=== PATIENT | female | born 1940 | race Caucasian/White ===

== ENCOUNTER 2023-06-14 01:57 | Emergency (ER) | payer MEDICARE, OTHER, SELFPAY ==
--- NOTE | 2023-06-13 02:04 | ECG_ITS ---
APPROVED REPORT Exam: Resting ECG HR:86 bpm ECG Measurements Heart Rate 86 AXES [place] 196 P 54 QRSd 157 QRS -15 QT 423 T 137 QTc 467 Conclusion SINUS RHYTHM LEFT BUNDLE BRANCH BLOCK [120+ ms QRS DURATION, 80+ ms Q/S IN V1/V2, 85+ ms R IN I/aVL/V5/V6] ABNORMAL ECG UNCONFIRMED REPORT Electronically signed by : James Carrizales MD 06/15/2023 17:40:15
[2023-06-14] VITALS (12 sets, daily range): BP systolic 102–151; BP diastolic 61–106; PULSE 73–90; RESP 18–20; TEMP 36.9–37; O2SAT 92–96; BMI 48.6
[2023-06-14 02:22] LABS: Basophils % 0.5 % (0.1-2.0); Eosinophils # 0.2 K/mm3 (0.0-0.4); Eosinophils % 3.9 % (0.1-12.0); Hematocrit 39.4 % (37.0-47.0); Hemoglobin 12.8 g/dL (12.2-16.2); Lymphocytes # 2.5 K/mm3 (0.7-4.5); Lymphocytes % 45.6 % (10-50); Mean Corpuscular HGB Conc 32.4 g/dL (31.8-35.4); Mean Corpuscular Hemoglobin 30.5 pg (27.0-31.2); Mean Corpuscular Volume 94.1 fl (81-99); Mean Platelet Volume 8.7 fl (7.4-10.4); Monocytes # 0.3 K/mm3 (0.1-1.0); Monocytes % 5.4 % (1.7-9.3); Neutrophils # 2.4 K/mm3 (1.8-7.8); Neutrophils % 44.5 % (37.0-80.0); Platelet Count 162 K/mm3 (142-424); Red Blood Count 4.19 M/mm3 (4.20-5.40); Red Cell Distribution Width 14.3 % (11.5-17.5); White Blood Count 5.4 K/mm3 (4.8-10.8)
[2023-06-14 02:26] LABS: Chloride 108 mmol/L (98-107); Sodium 141 mmol/L (136-145)
[2023-06-14 02:27] LABS: Potassium 3.8 mmoL/L (3.5-5.1)
[2023-06-14 02:29] LABS: Alanine Aminotransferase 16 U/L (12-78); Albumin Level 3.8 g/dl (3.5-5.0); Albumin/Globulin Ratio 1.4 (1.1-1.8); Alkaline Phosphatase 80 U/L (38-126); Anion Gap 10.8 mEq/L (5-15); Aspartate Amino Transferase 27 U/L (14-36); Bilirubin,Total 0.5 mg/dl (0.2-1.3); Blood Urea Nitrogen 20 mg/dl (7-17); Calcium 8.7 mg/dl (8.4-10.2); Carbon Dioxide 26 mmol/L (22.0-30.0); Creatinine Clearance Estimated 36 mL/min (50-200); Estimated Glomerular Filt Rate 53 ml/min (>60); GFR (African American) 64 ML/MIN (>60); Globulin 2.7 g/dL (1.3-3.2); Glucose 112 mg/dl (74-100); Lipase 145 U/L (23-300); Total Protein,Serum 6.5 g/dl (6.3-8.2)
[2023-06-14 02:43] LABS: Troponin I 0.01 ng/ml (0.00-0.034)
--- NOTE | 2023-06-14 03:09 | XR_ITS ---
PROCEDURE INFORMATION: Exam: XR Chest Exam date and time: 06/14/2023 3:16 AM Age: 82 years old Clinical indication: Pain; Chest pressure; Additional info: Chest pain, SOA TECHNIQUE: Imaging protocol: Radiologic exam of the chest. Views: 1 view. COMPARISON: No relevant prior studies available. FINDINGS: Lungs: Left basilar atelectasis versus early airspace disease. Pleural spaces: Unremarkable. No pleural effusion. No pneumothorax. Heart/Mediastinum: Cardiomegaly. Bones/joints: Unremarkable. IMPRESSION: Cardiomegaly. Left basilar atelectasis versus early airspace disease.
[2023-06-14 03:58] LABS: Adenovirus,PCR Not Detected (NotDetected); Coronavirus 229E Not Detected (NotDetected); Coronavirus NL63 Not Detected (NotDetected); Coronavirus OC43 Not Detected (NotDetected); Coronovirus HKU1,PCR Not Detected (NotDetected); Human Metapneumovirus Not Detected (NotDetected); Influenza A, PCR Not Detected (NotDetected); Influenza AH1, 2009 Not Detected (NotDetected); Influenza AH1, PCR Not Detected (NotDetected); Influenza AH3,PCR Not Detected (NotDetected); Influenza B, PCR Not Detected (NotDetected); Parainfluenza 1, PCR Not Detected (NotDetected); Rhinovirus/Enterovirus Not Detected (NotDetected)
[2023-06-14 03:59] LABS: Coronavirus 19, PCR Not Detected (NotDetected); Parainfluenza 2, PCR Not Detected (NotDetected); Parainfluenza 3, PCR Not Detected (NotDetected); Parainfluenza 4, PCR Not Detected (NotDetected); Respiratory Syncytial Virus Not Detected (NotDetected)
[2023-06-14 04:15] LABS: NT Pro Brain Natriuretic Pep. 852 pg/mL (0-450)
[2023-06-14 05:28] LABS: Troponin I 0.02 ng/ml (0.00-0.034)
--- NOTE | 2023-06-14 06:06 | [facility].EDGENADL ---
Discharge Plan Disposition Patient Disposition: Home, Self-Care Condition: Good Prescriptions Prescriptions: New amoxicillin-pot clavulanate [Augmentin XR] 1,000-62.5 mg tablet extended release 12 hr 2 tab PO DAILY 5 Days Qty: 10 0RF doxycycline hyclate 100 mg capsule 100 mg PO BID 5 Days Qty: 10 0RF No Action aspirin 81 mg tablet,delayed release (DR/EC) 81 mg PO DAILY atorvastatin 40 mg tablet 40 mg PO DAILY Caltrate 600 plus D 600 mg (1,500 mg)-800 unit tablet,chewable 1 tab PO BID ferrous sulfate [Feosol] 325 mg (65 mg iron) tablet 325 mg PO DAILY levothyroxine 137 mcg capsule 137 mcg PO DAILY meclizine 12.5 mg tablet 12.5 mg PO TID PRN methenamine hippurate 1 gram tablet 1 g PO BID metoprolol succinate 50 mg capsule,sprinkle,ER 24hr 50 mg PO DAILY montelukast 10 mg tablet 10 mg PO QPM pantoprazole 40 mg recon soln 40 mg IV DAILY prenat.vits,juliano,[id number] Tablet 1 tab PO DAILY prenat.vits,juliano,[id number]-[id number] Tablet 1 tab PO DAILY ropinirole 2 mg tablet 2 mg PO QHS sucralfate 1 gram tablet 1 g PO BID acetaminophen [Tylenol Extra Strength] 500 mg tablet 500 mg PO Q6H PRN diphenhydramine-acetaminophen [Tylenol PM Extra Strength] 25-500 mg tablet 1 tab PO QHS PRN warfarin 3 mg tablet 3 mg PO QMWF Referrals Follow up/Referrals: James Carrizales MD [Primary Care Provider] - See instructions Activity Restrictions/Add. Instructions Additional Instructions/Restrictions: Recheck with PCP within 2 days. Clinical Impressions Clinical Impression: Pneumonia involving left lung Instructions Patient Instructions: Pneumonia-Adult Discharge ED Provider: Frida Nicole General Adult HPI General Chief complaint: Chest Pain Stated complaint: respiratory symptoms Time Seen by Provider: 06/14/23 03:31 Mode of Arrival: EMS Source of Information: EMS and Medical Record Limitations: No Limitations Description of Symptoms (Recalled from ER Triage Doc. by RN): pt came from [facility] complaing of chest pain and soa was 85% on RA. per ems pt has left sided rales. ems gave 325 mg ASA and nitro x1 sl and duoneb. pt is now 96% on 2 L of nasal cannula History of Present Illness HPI narrative: Patient is an 82-year-old female with previous medical history of heart failure presents from her [facility] with throat pain and shortness of breath. At her nursing facility she was found to be 85% on room air. EMS gave aspirin, nitroglycerin, DuoNeb, and patient no longer requires supplemental oxygen on arrival. Patient states that for the past 24 hours she has progressively worsening shortness of breath and throat pain with swallowing. Related Data Home Medications Medication Instructions Recorded Confirmed acetaminophen 500 mg tablet 500 mg PO Q6H PRN 02/01/19 02/01/19 (Tylenol Extra Strength) aspirin 81 mg tablet,delayed 81 mg PO DAILY 02/01/19 02/01/19 release atorvastatin 40 mg tablet 40 mg PO DAILY 02/01/19 02/01/19 calcium carbonate 600 mg-vitamin 1 tab PO BID 02/01/19 02/01/19 D3 20 mcg (800 unit) chewable tablet (Caltrate 600 plus D) diphenhydramine 25 1 tab PO QHS PRN 02/01/19 02/01/19 mg-acetaminophen 500 mg tablet (Tylenol PM Extra Strength) ferrous sulfate 325 mg (65 mg 325 mg PO DAILY 02/01/19 02/01/19 iron) tablet (Feosol) levothyroxine 137 mcg capsule 137 mcg PO DAILY 02/01/19 02/01/19 meclizine 12.5 mg tablet 12.5 mg PO TID PRN 02/01/19 02/01/19 methenamine hippurate 1 gram tablet 1 g PO BID 02/01/19 02/01/19 metoprolol succinate 50 mg capsule 50 mg PO DAILY 02/01/19 02/01/19 sprinkle, ext. release 24 hr montelukast 10 mg tablet 10 mg PO QPM 02/01/19 02/01/19 pantoprazole 40 mg intravenous 40 mg IV DAILY 02/01/19 02/01/19 solution prenat.vits,juliano,[id number]-[id number]-[id number] 1 tab PO DAILY 02/01/19 02/01/19 prenat.vits,juliano,[id number]-[id number]-ezeqe 1 tab PO DAILY 02/01/19
== END 2023-06-14 06:46 | disposition home or self-care (01) ==
PROVIDERS: Emergency Provider Emergency Medicine; PCP Internal Medicine Adolescent Medicine
DX: J18.9 Pneumonia, unspecified organism (principal); R07.9 Chest pain, unspecified; R06.02 Shortness of breath; R07.0 Pain in throat; I50.9 Heart failure, unspecified; I44.7 Left bundle-branch block, unspecified
CPT/HCPCS: 71045; 80053; 83690; 83880; 84484; 85025; 87632; 87635; 93005; 99285